=== PATIENT | male | born 1970 | race Caucasian/White ===

== ENCOUNTER 2021-06-12 12:30 | Emergency (ER) | payer BC ==
[~2021-06-12] VITALS: Ht 188 cm; Wt 95.0 kg
[2021-06-12 13:04] VITALS: BP 134/84
[2021-06-12] MEDS ORDERED: POLY119P2 PO (13:32)
== END 2021-06-12 13:46 | disposition home or self-care (01) ==
LOC: ER 12:30
DX: K59.01 Slow transit constipation (principal)
CPT/HCPCS: 99282